=== PATIENT | female | born 1985 | race Caucasian/White ===

== ENCOUNTER 2019-06-02 07:53 | Outpatient (CLI) | payer BC, SELFPAY ==
[2019-06-02 08:45] LABS: HCG Quant, Pregnancy 610 mIU/mL (1-3)
[2019-06-02 16:31] LABS: Estradiol 1022 pg/ml; Progesterone 32.1 ng/ml
== END 2019-06-02 08:13 ==
PROVIDERS: PCP Family Medicine; Visit Provider Obstetrics & Gynecology
DX: Z32.01 Encounter for pregnancy test, result positive (principal)
CPT/HCPCS: 36415; 82670; 84144; 84702